=== PATIENT | male | born 1955 | race Caucasian/White ===

== ENCOUNTER 2018-02-28 10:32 | Day surgery (SDC) | payer MEDICAID ==
[~2018-02-28] VITALS: Ht 188 cm; Wt 113.2 kg
[~2018-02-28 10:32] MED LIST: ATEN50TA PO; ATOR40TA28 PO; DABI75CA3 PO; GABA-531 PO; GLIP5 PO; HYDR-3971 PO; ISOS30TA6 PO; METF500T6 PO; SODIUM CHLORIDE 0.9% 1,000 ML IV ONE; TAMS0.4C32 PO
[2018-02-28 11:10] LABS: EOSINOPHILS % (AUTO) 1.5 % (1.0-6.0); HEMATOCRIT 46.9 % (41-53); HEMOGLOBIN 16.3 g/dL (13.5-17.5); LYMPHOCYTES # (AUTO) 3.5 K/uL (1.0-4.8); LYMPHOCYTES % (AUTO) 39.6 % (22.0-44.0); MEAN CORPUSCULAR HEMOGLOBIN 32.2 pg (26.0-34.0); MEAN CORPUSCULAR HGB CONC 34.8 G/dL (31.0-37.0); MEAN CORPUSCULAR VOLUME 93 fL (80-100); MONOCYTES # (AUTO) 0.7 K/uL (0.1-1.0); MONOCYTES % (AUTO) 7.4 % (2.0-9.0); NEUTROPHILS # (AUTO) 4.5 K/uL (1.8-7.7); NEUTROPHILS % (AUTO) 50.5 % (40.0-70.0); PLATELET COUNT (AUTO) 231 K/uL (150-450); RED BLOOD CELL COUNT(AUTO) 5.06 MIL/uL (4.50-5.90)
[2018-02-28 11:19] LABS: ANION GAP 10 mmol/L (8-16); CALCIUM, TOTAL 8.8 mg/dL (8.8-10.5); CARBON DIOXIDE 27 mmol/L (22-29); CHLORIDE 103 mmol/L (98-107); CREATININE 1.07 mg/dL (0.60-1.30); GLOMERULAR FILTR. RATE CALC > 60 mL/min (>60); GLUCOSE,RANDOM 176 mg/dL (70-110); SODIUM SERUM 140 mmol/L (136-145); UREA NITROGEN, BLOOD 13 mg/dL (7-18)
[2018-02-28 11:23] LABS: PROTHROMBIN TIME 10.3 SEC (9.4-11.6)
[2018-02-28] MEDS ORDERED: FentaNYL CITRATE-PF 100 MCG/2 ML VIAL IVP ONE (12:00)
[2018-02-28] MEDS ORDERED: MIDAZOLAM HCL 2 MG/2 ML VIAL IVP ONE (12:00)
[2018-02-28] MEDS ORDERED: APIX5TAB PO (12:21)
[2018-02-28] MEDS ORDERED: OMEP20 PO (12:21)
[2018-02-28] MEDS ORDERED: LISI-661 PO (12:21)
[2018-02-28] MEDS ORDERED: DIGO-44 PO (12:21)
[2018-02-28] MEDS ORDERED: GABA-531 PO (12:23)
[2018-02-28] MEDS ORDERED: ROSU10 PO (12:23)
[2018-02-28] MEDS ORDERED: DICY10 PO (12:23)
[2018-02-28] MEDS ORDERED: IPRAHFA IH (12:23)
[2018-02-28] MEDS ORDERED: FLUT16H NASAL (12:23)
[2018-02-28] MEDS ORDERED: METO-558 PO (12:23)
[2018-02-28] MEDS ORDERED: NITR.4 SL (12:23)
[2018-02-28] MEDS ORDERED: BENZOCAINE 20% 50 MCG/SPRAY 57 GM ONE (12:31)
== END 2018-02-28 15:15 | disposition home or self-care (01) ==
LOC: CATHLAB 10:32
PROVIDERS: ATTEND Internal Medicine Cardiovascular Disease
DX: I48.2 Chronic atrial fibrillation (principal); E11.9 Type 2 diabetes mellitus without complications; F41.8 Other specified anxiety disorders; K21.9 Gastro-esophageal reflux disease without esophagitis; E78.5 Hyperlipidemia, unspecified; I11.0 Hypertensive heart disease with heart failure; I50.9 Heart failure, unspecified; M19.90 Unspecified osteoarthritis, unspecified site; Z90.49 Acquired absence of other specified parts of digestive tract; Z90.89 Acquired absence of other organs; Z79.01 Long term (current) use of anticoagulants; Z79.84 Long term (current) use of oral hypoglycemic drugs; Z79.891 Long term (current) use of opiate analgesic; Z79.899 Other long term (current) drug therapy; Z98.890 Other specified postprocedural states
CPT/HCPCS: 36415; 80048; 85025; 85610; 85730; 92960; 93005; 93312; J2250; J3010; J7030